=== PATIENT | female | born 1955 | race Caucasian/White ===

== ENCOUNTER 2017-02-26 09:15 | Emergency (ER) | payer OTHER ==
[~2017-02-26] VITALS: Ht 170.2 cm; Wt 65.8 kg
--- NOTE | 2017-02-26 10:00 | NUR ---
pt to room, changed into gown and placed on monitor. Pt NSR. Pt seen by . EKG obtained. Labs drawn and sent. Pt resting in position of comfort for self. Resp even and unlabored at this time.
[2017-02-26 10:07] LABS: BASOPHILS % (AUTO) 0.7 % (0.0-2.0); EOSINOPHILS # (AUTO) 0.1 K/uL (0.0-0.7); HEMATOCRIT 39.3 % (37-47); LYMPHOCYTES # (AUTO) 2.1 K/UL (0.8-4.8); LYMPHOCYTES % (AUTO) 37.6 % (20.5-51.5); MEAN CORPUSCULAR HEMOGLOBIN 29.8 UUG (27.0-31.0); MEAN CORPUSCULAR HGB CONC 33 g/dL (32.0-37.0); MEAN CORPUSCULAR VOLUME 89.9 FL (81.0-99.0); MONOCYTES # (AUTO) 0.5 K/UL (0.1-1.30); MONOCYTES % (AUTO) 8.5 % (0.0-11.0); NEUTROPHILS # (AUTO) 2.8 K/UL (1.8-8.9); NEUTROPHILS % (AUTO) 51.2 % (38.5-71.5); PLATELET COUNT (AUTO) 351 K/UL (150-450); RED BLOOD CELL COUNT(AUTO) 4.37 MIL/UL (4.2-5.4); RED CELL DISTRIBUTION WIDTH 12.6 % (11.5-14.5); WHITE BLOOD COUNT (AUTO) 5.5 K/UL (4.0-11.2)
[2017-02-26 10:14] LABS: CALCIUM 9.2 mg/dL (8.5-10.1); POTASSIUM 3.9 mmol/L (3.5-5.1)
[2017-02-26 10:26] LABS: ALBUMIN 3.4 g/dL (3.4-5.0); BILIRUBIN,DIRECT 0.1 mg/dL (0.0-0.2); BILIRUBIN,TOTAL 0.3 mg/dL (0.2-1.0)
--- NOTE | 2017-02-26 11:30 | NUR ---
Pt resting in [place] with no s/s of distress noted at this time, disposition pending.
[2017-02-26] MEDS ORDERED: IV NORMAL SALINE 250 ML IV ONE (12:23)
[2017-02-26] MEDS ORDERED: IOHEXOL 350 100 ML INFUS..BTL ONE (12:23)
[2017-02-26] MEDS ORDERED: NORMAL SALINE FLUSH 10 ML DISP.SYRIN ONE (12:23)
--- NOTE | 2017-02-26 12:34 | NUR ---
Pt, family and MD discussing further plan of care at this time
--- NOTE | 2017-02-26 12:35 | NUR ---
Pt declined to sign consent for CTA, states she would like to talk with Dr Valladares about the procedure again. Dr Valladares notified.
--- NOTE | 2017-02-26 13:00 | NUR ---
Pt is very indecisive and is unsure of how she would like to proceed with the plan of care as recommended by ER physician. Pt and family are constantly on cell phone and the pt is constantly changing her mind.
[2017-02-26] MEDS ORDERED: MAG HYDROX/AL HYDROX/SIMETH 30 ML LIQUID UDC PO ONE (13:15)
[2017-02-26] MEDS ORDERED: PANTOPRAZOLE SODIUM 40 MG TABLET.DR PO ONE ×2 (13:15→13:42)
--- NOTE | 2017-02-26 13:25 | NUR ---
Pt ambulated to and from br with steady gait.
[2017-02-26] MEDS ORDERED: MAG HYDROX/AL HYDROX/SIMETH 30 ML LIQUID UDC ONE (13:42)
--- NOTE | 2017-02-26 13:50 | NUR ---
MD at bedside to speak with pt conerning repeat lab results and further placn of care.
--- NOTE | 2017-02-26 14:32 | NUR ---
Dr Valladares at bedside for re-exam.
--- NOTE | 2017-02-26 15:05 | NUR ---
Pt agrees to have CTA after talking with Ana, pt signed consent.
--- NOTE | 2017-02-26 15:51 | NUR ---
Pt to and from CT via bc. Pt requesting to eat and to speak with MD. aware.
--- NOTE | 2017-02-26 17:15 | NUR ---
IV removed. Catheter intact and site benign. Pressure and 4x4 gauze applied to site. No bleeding noted.
--- NOTE | 2017-02-26 17:20 | NUR ---
Patient discharged to home in stable conditon with . Written and verbal after care instructions given. Patient verbalizes understanding of instructions. Pt was given extensive ACI, stressed follow up with pmd/cardio ( pt was given a referral by Dr Valladares ).
[2017-02-26] MEDS ORDERED: DIAZEPAM 2 MG TABLET PO ONE (17:45)
[2017-02-26] MEDS ORDERED: DIAZEPAM 2 MG TABLET ONE (17:46)
== END 2017-02-26 17:47 | disposition home or self-care (01) ==
LOC: ER 09:15
DX: R07.9 Chest pain, unspecified (principal)
CPT/HCPCS: 36415; 70030-TC; 71010; 71275; 83090; 85025; 85730; 93005; A4663; J3490; J7050; Q9967